=== PATIENT | female | born 1940 | race Caucasian/White ===

== ENCOUNTER 2018-05-13 08:06 | Inpatient (IN) | payer OTHER, BC ==
[~2018-05-13] VITALS: Ht 170.2 cm; Wt 58.9 kg
[2018-05-13 09:29] LABS: HEMATOCRIT 31.5 % (36.0-46.0); HEMOGLOBIN 10.9 G/DL (11.9-15.5); MCH 31.3 PG (29.0-34.0); MCHC 34.6 G/DL (30.0-36.0); MCV 90.5 FL (83-99); PLATELET COUNT 337 K/uL (156-360); RBC DIS.WIDTH-CV 13.5 % (11.8-14.6); RBC DIS.WIDTH-SD 44.1 % (39-53); RED BLOOD COUNT 3.48 M/uL (3.80-5.20); WHITE BLOOD COUNT 11.3 K/uL (4.1-10.2)
[2018-05-13 09:33] LABS: INTER. NORMALIZED RATIO 1.2
[2018-05-13 09:35] LABS: PTT 23.5 SEC (25-37)
[2018-05-13 09:48] LABS: ALBUMIN 3.1 g/dL (3.2-4.8); CHLORIDE 102 mEq/L (99-109); POTASSIUM 3.8 mEq/L (3.7-5.4); SODIUM 140 mEq/L (136-147)
[2018-05-13 09:51] LABS: GLUCOSE 296 mg/dL (70-99); TOTAL PROTEIN 6.3 g/dL (6.4-8.3)
[2018-05-13 09:53] LABS: TOTAL BILIRUBIN 0.8 mg/dL (0.0-1.0)
[2018-05-13 09:54] LABS: ALKALINE PHOSPHATASE 85 IU/L (3-129); CREATININE 0.7 mg/dL (0.6-1.3); GFR ESTIMATE (CALCULATED) > 59 mL/min/
[2018-05-13 09:56] LABS: AST (GOT) 16 IU/L (2-34); UREA NITROGEN (BUN) 17 mg/dL (9-23)
[2018-05-13 09:57] LABS: ALT (GPT) 10 IU/L (3-49)
[2018-05-13 10:00] LABS: TROP-I INTERPRETATION NEGATIVE; TROPONIN-I 0.02 ng/mL (0.0-0.30)
[2018-05-13] MEDS ORDERED: MEMANTINE HCL5 MG PO (11:14)
[2018-05-13] MEDS ORDERED: ASPIR-LOW81 MG PO (11:14)
[2018-05-13] MEDS ORDERED: CITALOPRAM HBR20 MG PO (11:15)
[2018-05-13] MEDS ORDERED: LISINOPRIL10 MG PO (11:15)
[2018-05-13] MEDS ORDERED: MIRTAZAPINE15 MG PO (11:15)
[2018-05-13] MEDS ORDERED: METFORMIN HCL500 M1 PO (11:15)
[2018-05-13] MEDS ORDERED: MULTI VITAMIN1 EACH PO (11:16)
[2018-05-13] MEDS ORDERED: SYNTHROID100 MCG PO (11:16)
[2018-05-13 13:51] LABS: CREATINE KINASE 104 IU/L (1-294)
[2018-05-13 18:00] VITALS: BP 120/59
[2018-05-13 19:27] VITALS: BP 148/70; BP 198/86
[2018-05-13 23:11] VITALS: BP 152/73
[2018-05-14 05:07] VITALS: BP 120/63
[2018-05-14 08:03] LABS: HEMATOCRIT 25.8 % (36.0-46.0); HEMOGLOBIN 8.6 G/DL (11.9-15.5); MCH 30.8 PG (29.0-34.0); MCHC 33.3 G/DL (30.0-36.0); MCV 92.5 FL (83-99); PLATELET COUNT 295 K/uL (156-360); RBC DIS.WIDTH-CV 13.5 % (11.8-14.6); RBC DIS.WIDTH-SD 45.4 % (39-53); RED BLOOD COUNT 2.79 M/uL (3.80-5.20); WHITE BLOOD COUNT 9.2 K/uL (4.1-10.2)
[2018-05-14 08:27] LABS: CHLORIDE 107 MEQ/L (99-109); CREATININE 0.4 MG/DL (0.6-1.3); GFR ESTIMATE (CALCULATED) > 59 mL/min/; POTASSIUM 3.7 MEQ/L (3.7-5.4); SODIUM 142 MEQ/L (136-147); UREA NITROGEN (BUN) 17 mg/dL (9-23)
[2018-05-14 08:32] LABS: GLUCOSE 59 mg/dL (70-99)
[2018-05-14 08:52] VITALS: BP 121/55
[2018-05-14 09:22] LABS: IRON 25 MCG/DL (35-150); TRANSFERRIN (TIBC) 140.4 mg/dL (215-380); TRANSFERRIN SATUR. 18 % (20-55)
[2018-05-14 10:00] LABS: FERRITIN 439 NG/ML (10-291)
[2018-05-14 10:07] LABS: FOLIC ACID (FOLATE) 12.8 NG/ML (5.0-22.0)
[2018-05-14 11:53] VITALS: BP 117/57
[2018-05-14 16:09] VITALS: BP 121/58
[2018-05-14 19:07] LABS: HEMATOCRIT 24.9 % (36.0-46.0); MCH 29.4 PG (29.0-34.0); MCHC 32.1 G/DL (30.0-36.0); MCV 91.5 FL (83-99); PLATELET COUNT 312 K/uL (156-360); RBC DIS.WIDTH-CV 13.7 % (11.8-14.6); RBC DIS.WIDTH-SD 45.1 % (39-53); RED BLOOD COUNT 2.72 M/uL (3.80-5.20)
[2018-05-14 19:35] VITALS: BP 111/53
[2018-05-14 23:50] VITALS: BP 117/58
[2018-05-15] VITALS (11 sets, daily range): BP systolic 113–175; BP diastolic 60–84
[2018-05-15 07:01] LABS: BASOPHIL (%) 0.4 % (0-1); EOSINOPHIL (%) 2.5 % (0-5); EOSINOPHIL COUNT 0.2 K/uL (0-0.3); HEMATOCRIT 22.1 % (36.0-46.0); HEMOGLOBIN 7.3 G/DL (11.9-15.5); IMMATURE GRANULOCYTE (%) 0.3 % (0.0-0.7); MCH 30.3 PG (29.0-34.0); MCV 91.7 FL (83-99); MONOCYTE (%) 8.8 % (3-12); MONOCYTE COUNT 0.7 K/uL (0-0.8); NEUTROPHIL COUNT 4.9 K/uL (1.8-6.4); PLATELET COUNT 291 K/uL (156-360); RBC DIS.WIDTH-CV 13.6 % (11.8-14.6); RBC DIS.WIDTH-SD 45.9 % (39-53); RED BLOOD COUNT 2.41 M/uL (3.80-5.20); WHITE BLOOD COUNT 7.9 K/uL (4.1-10.2)
[2018-05-15 07:36] LABS: CHLORIDE 104 MEQ/L (99-109); CREATININE 0.4 MG/DL (0.6-1.3); GFR ESTIMATE (CALCULATED) > 59 mL/min/; POTASSIUM 3.7 MEQ/L (3.7-5.4); SODIUM 138 MEQ/L (136-147); UREA NITROGEN (BUN) 17 mg/dL (9-23)
[2018-05-15 07:38] LABS: GLUCOSE 155 mg/dL (70-99)
[2018-05-15 21:39] LABS: HEMATOCRIT 26.5 % (36.0-46.0); HEMOGLOBIN 8.8 G/DL (11.9-15.5); MCH 29.9 PG (29.0-34.0); MCHC 33.2 G/DL (30.0-36.0); MCV 90.1 FL (83-99); PLATELET COUNT 284 K/uL (156-360); RBC DIS.WIDTH-CV 13.4 % (11.8-14.6); WHITE BLOOD COUNT 8.2 K/uL (4.1-10.2)
[2018-05-15 21:55] LABS: RED BLOOD COUNT 2.94 M/uL (3.80-5.20)
[2018-05-16] VITALS (7 sets, daily range): BP systolic 116–180; BP diastolic 57–87
[2018-05-16 07:29] LABS: BASOPHIL (%) 0.6 % (0-1); BASOPHIL COUNT 0.1 K/uL (0-0.1); EOSINOPHIL (%) 2.5 % (0-5); EOSINOPHIL COUNT 0.2 K/uL (0-0.3); HEMATOCRIT 26.7 % (36.0-46.0); IMMATURE GRANULOCYTE (%) 0.9 % (0.0-0.7); LYMPHOCYTE (%) 20.6 % (15-42); LYMPHOCYTE COUNT 1.7 K/uL (1.0-2.8); MCH 30.1 PG (29.0-34.0); MCHC 33.7 G/DL (30.0-36.0); MCV 89.3 FL (83-99); MONOCYTE (%) 11.5 % (3-12); NEUTROPHIL (%) 63.9 % (45-76); NEUTROPHIL COUNT 5.4 K/uL (1.8-6.4); PLATELET COUNT 313 K/uL (156-360); RBC DIS.WIDTH-CV 13.8 % (11.8-14.6); RBC DIS.WIDTH-SD 44.5 % (39-53); RED BLOOD COUNT 2.99 M/uL (3.80-5.20); WHITE BLOOD COUNT 8.4 K/uL (4.1-10.2)
[2018-05-16 08:03] LABS: CHLORIDE 102 MEQ/L (99-109); CREATININE 0.3 MG/DL (0.6-1.3); GFR ESTIMATE (CALCULATED) > 59 mL/min/; GLUCOSE 159 mg/dL (70-99); POTASSIUM 4.1 MEQ/L (3.7-5.4); SODIUM 138 MEQ/L (136-147); UREA NITROGEN (BUN) 14 mg/dL (9-23)
[2018-05-17 03:23] VITALS: BP 144/68
[2018-05-17 07:47] LABS: HEMATOCRIT 26.3 % (36.0-46.0); HEMOGLOBIN 8.9 G/DL (11.9-15.5); MCH 30.6 PG (29.0-34.0); MCHC 33.8 G/DL (30.0-36.0); MCV 90.4 FL (83-99); PLATELET COUNT 331 K/uL (156-360); RBC DIS.WIDTH-CV 13.8 % (11.8-14.6); RED BLOOD COUNT 2.91 M/uL (3.80-5.20); WHITE BLOOD COUNT 9.1 K/uL (4.1-10.2)
[2018-05-17 08:00] VITALS: BP 176/94
[2018-05-17 10:48] VITALS: BP 156/68
[2018-05-17 12:21] VITALS: BP 135/68
[2018-05-17 16:00] VITALS: BP 147/77
[2018-05-17 21:08] VITALS: BP 132/60
[2018-05-18 00:58] VITALS: BP 172/80
[2018-05-18 04:41] VITALS: BP 134/63
[2018-05-18 04:44] VITALS: BP 168/75
[2018-05-18 06:40] LABS: HEMATOCRIT 27.3 % (36.0-46.0); HEMOGLOBIN 9.2 G/DL (11.9-15.5); MCH 30.4 PG (29.0-34.0); MCHC 33.7 G/DL (30.0-36.0); MCV 90.1 FL (83-99); PLATELET COUNT 388 K/uL (156-360); RBC DIS.WIDTH-CV 13.6 % (11.8-14.6); RBC DIS.WIDTH-SD 43.8 % (39-53); RED BLOOD COUNT 3.03 M/uL (3.80-5.20); WHITE BLOOD COUNT 9.9 K/uL (4.1-10.2)
[2018-05-18 07:04] LABS: CHLORIDE 98 MEQ/L (99-109); CREATININE 0.3 MG/DL (0.6-1.3); GFR ESTIMATE (CALCULATED) > 59 mL/min/; GLUCOSE 174 mg/dL (70-99); POTASSIUM 4.6 MEQ/L (3.7-5.4); SODIUM 135 MEQ/L (136-147); UREA NITROGEN (BUN) 10 mg/dL (9-23)
[2018-05-18 08:58] VITALS: BP 176/77
[2018-05-18] MEDS ORDERED: LOVENOX40 MG/0.4 SC (11:36)
[2018-05-18] MEDS ORDERED: ENDOCET 5-3251 EACH PO (11:36)
[2018-05-18] MEDS ORDERED: COLACE100 MG PO (11:36)
[2018-05-18] MEDS ORDERED: MIRALAX17 GM PO (11:37)
== END 2018-05-18 13:37 | DRG 481 ==
LOC: EME 08:06 → 3EAST 11:23 → EDOF 11:23 → ENRESERV 11:27 → 3EAST 17:56
PROVIDERS: Emergency Medicine; Family Medicine; Internal Medicine; Physician Assistant
PROC: 0QS606Z Reposition Right Upper Femur with Intramedullary Internal Fixation Device, Open Approach (ICD-10-PCS; principal; 2018-05-13)
PROC: 30233N1 Transfusion of Nonautologous Red Blood Cells into Peripheral Vein, Percutaneous Approach (ICD-10-PCS; 2018-05-15)
DX: S72.141A Displaced intertrochanteric fracture of right femur, initial encounter for closed fracture (principal); W18.30XA Fall on same level, unspecified, initial encounter; L76.32 Postprocedural hematoma of skin and subcutaneous tissue following other procedure; Y83.8 Other surgical procedures as the cause of abnormal reaction of the patient, or of later complication, without mention of misadventure at the time of the procedure; D62 Acute posthemorrhagic anemia; J98.11 Atelectasis; R09.02 Hypoxemia; I10 Essential (primary) hypertension; K59.00 Constipation, unspecified; F03.90 Unspecified dementia, unspecified severity, without behavioral disturbance, psychotic disturbance, mood disturbance, and anxiety; E11.65 Type 2 diabetes mellitus with hyperglycemia; E89.0 Postprocedural hypothyroidism; F32.9 Major depressive disorder, single episode, unspecified; F41.9 Anxiety disorder, unspecified; M19.90 Unspecified osteoarthritis, unspecified site; Z87.891 Personal history of nicotine dependence
CPT/HCPCS: 71045; 73502; 73522; 74176; 74177; 76000; 80048; 80053; 81003; 82272; 82306; 82550; 82550 91; 82607; 82728; 82746; 82948; 83540; 84466; 84484; 85025; 85027; 85610; 85730; 86850; 86900; 86901; 86920; 93005; 94640; 94799; 97530 GO; 97530 GP; 99281; 99285; C1713; J0131; J0360; J0690; J1100; J1650; J1815; J1885; J1940; J2405; J3010; J7030; P9016

== ENCOUNTER 2018-05-20 12:13 | Inpatient (IN) | payer OTHER, BC ==
[~2018-05-20] VITALS: Ht 170.2 cm; Wt 57.9 kg
[~2018-05-20 12:13] MED LIST: ASPIR-LOW81 MG PO; CITALOPRAM HBR20 MG PO; COLACE100 MG PO; ENDOCET 5-3251 EACH PO; LISINOPRIL10 MG PO; LOVENOX40 MG/0.4 SC; MEMANTINE HCL5 MG PO; METFORMIN HCL500 M1 PO; MIRALAX17 GM PO; MIRTAZAPINE15 MG PO; MULTI VITAMIN1 EACH PO; SYNTHROID100 MCG PO
[2018-05-20 13:15] LABS: BASOPHIL (%) 0.5 % (0-1); BASOPHIL COUNT 0.1 K/uL (0-0.1); EOSINOPHIL (%) 2.4 % (0-5); EOSINOPHIL COUNT 0.2 K/uL (0-0.3); HEMATOCRIT 29.2 % (36.0-46.0); HEMOGLOBIN 9.7 G/DL (11.9-15.5); IMMATURE GRANULOCYTE (%) 0.7 % (0.0-0.7); LYMPHOCYTE (%) 15.5 % (15-42); LYMPHOCYTE COUNT 1.4 K/uL (1.0-2.8); MCH 30.7 PG (29.0-34.0); MCHC 33.2 G/DL (30.0-36.0); MCV 92.4 FL (83-99); MONOCYTE COUNT 1.1 K/uL (0-0.8); NEUTROPHIL (%) 68.9 % (45-76); NEUTROPHIL COUNT 6.3 K/uL (1.8-6.4); PLATELET COUNT 505 K/uL (156-360); RBC DIS.WIDTH-CV 14.1 % (11.8-14.6); RBC DIS.WIDTH-SD 46.3 % (39-53); RED BLOOD COUNT 3.16 M/uL (3.80-5.20); WHITE BLOOD COUNT 9.1 K/uL (4.1-10.2)
[2018-05-20 13:25] LABS: ALBUMIN 2.7 g/dL (3.2-4.8); CHLORIDE 100 mEq/L (99-109); POTASSIUM 4.6 mEq/L (3.7-5.4); SODIUM 136 mEq/L (136-147)
[2018-05-20 13:27] LABS: GLUCOSE 252 mg/dL (70-99); TOTAL PROTEIN 5.7 g/dL (6.4-8.3)
[2018-05-20 13:29] LABS: TOTAL BILIRUBIN 0.6 mg/dL (0.0-1.0)
[2018-05-20 13:31] LABS: ALKALINE PHOSPHATASE 116 IU/L (3-129); CREATININE 0.6 mg/dL (0.6-1.3); GFR ESTIMATE (CALCULATED) > 59 mL/min/
[2018-05-20 13:32] LABS: UREA NITROGEN (BUN) 10 mg/dL (9-23)
[2018-05-20 13:33] LABS: AST (GOT) 13 IU/L (2-34)
[2018-05-20 13:34] LABS: ALT (GPT) 9 IU/L (3-49)
[2018-05-20 13:36] LABS: TROP-I INTERPRETATION NEGATIVE; TROPONIN-I < 0.01 ng/mL (0.0-0.30)
[2018-05-20 14:27] LABS: APPEARANCE SL.HAZY ((CLEAR)); BILIRUBIN NEGATIVE; BLOOD NEGATIVE; COLOR YELLOW ((YELLOW)); GLUCOSE (STRIP) 150; KETONES NEGATIVE; LEUKOCYTES NEGATIVE; NITRITE NEGATIVE; PROTEIN (STRIP) NEGATIVE; SPECIFIC GRAVITY 1.014 (1.000-1.030); UROBILINOGEN 0.2 MG/DL (0.2-1.0)
[2018-05-20 14:28] LABS: HDL CHOLESTEROL 42 MG/DL (Desirable>=50); LDL CHOLESTEROL 102 mg/dL (Desirable<100); NON-HDL CHOLESTEROL 129 mg/dL (Desirable<160); TOTAL CHOLESTEROL 171 mg/dL (Desirable<200); TRIGLYCERIDES 134 MG/DL (Normal: <150)
[2018-05-20 14:35] LABS: BACTERIA RARE /HPF; EPITHELIAL CELLS RARE /HPF; MUCUS NONE SEEN /LPF; RED BLOOD CELLS 0-5 /HPF (0-5); UCUL ADDED? NO; WHITE BLOOD CELLS 0-5 /HPF (0-5)
[2018-05-20] MEDS ORDERED: LOVENOX40 MG/0.4 SC (15:26)
[2018-05-20] MEDS ORDERED: SYNTHROID150 MCG PO (15:31)
[2018-05-20] MEDS ORDERED: COLACE100 MG PO (15:34)
[2018-05-20] MEDS ORDERED: DULCOLAX10 MG PR (15:37)
[2018-05-20] MEDS ORDERED: ENDOCET 5-3251 EACH PO (15:38)
[2018-05-20] MEDS ORDERED: MILK OF MAGN PO (15:40)
[2018-05-20] MEDS ORDERED: MIRALAX17 GM PO (15:41)
[2018-05-20 16:20] LABS: HEMATOCRIT 27.7 % (36.0-46.0); HEMOGLOBIN 9.4 G/DL (11.9-15.5); MCH 31.1 PG (29.0-34.0); MCHC 33.9 G/DL (30.0-36.0); MCV 91.7 FL (83-99); PLATELET COUNT 469 K/uL (156-360); RBC DIS.WIDTH-CV 14.1 % (11.8-14.6); RBC DIS.WIDTH-SD 44.9 % (39-53); RED BLOOD COUNT 3.02 M/uL (3.80-5.20); WHITE BLOOD COUNT 8.1 K/uL (4.1-10.2)
[2018-05-20 17:28] VITALS: BP 171/79
[2018-05-20 19:00] VITALS: BP 143/83
[2018-05-20 19:53] LABS: TROP-I INTERPRETATION NEGATIVE; TROPONIN-I < 0.01 ng/mL (0.0-0.30)
[2018-05-21 00:27] VITALS: BP 136/78
[2018-05-21 05:10] VITALS: BP 150/80
[2018-05-21 08:00] VITALS: BP 148/81
[2018-05-21 11:28] LABS: HEMATOCRIT 27.8 % (36.0-46.0); HEMOGLOBIN 9.3 G/DL (11.9-15.5); MCH 30.8 PG (29.0-34.0); MCHC 33.5 G/DL (30.0-36.0); MCV 92.1 FL (83-99); RBC DIS.WIDTH-CV 14.2 % (11.8-14.6); RBC DIS.WIDTH-SD 46.2 % (39-53); RED BLOOD COUNT 3.02 M/uL (3.80-5.20); WHITE BLOOD COUNT 7.7 K/uL (4.1-10.2)
[2018-05-21 11:29] LABS: PLATELET COUNT 635 K/uL (156-360)
[2018-05-21 11:44] LABS: CHLORIDE 101 mEq/L (99-109); POTASSIUM 4.3 mEq/L (3.7-5.4); SODIUM 133 mEq/L (136-147)
[2018-05-21 11:45] LABS: GLUCOSE 296 mg/dL (70-99)
[2018-05-21 11:49] LABS: CREATININE 0.6 mg/dL (0.6-1.3); GFR ESTIMATE (CALCULATED) > 59 mL/min/
[2018-05-21 11:50] LABS: UREA NITROGEN (BUN) 11 mg/dL (9-23)
[2018-05-21 11:57] VITALS: BP 162/79
[2018-05-21 16:07] VITALS: BP 170/80
[2018-05-21 17:51] LABS: THYROTROPIN (TSH) 14.7 MIU/L (0.4-5.5)
[2018-05-21 19:03] VITALS: BP 137/65
[2018-05-22 00:37] VITALS: BP 170/82
[2018-05-22 05:09] VITALS: BP 171/71
[2018-05-22 05:34] LABS: HEMATOCRIT 29.9 % (36.0-46.0); HEMOGLOBIN 9.8 G/DL (11.9-15.5); MCH 30.6 PG (29.0-34.0); MCHC 32.8 G/DL (30.0-36.0); MCV 93.4 FL (83-99); PLATELET COUNT 600 K/uL (156-360); RBC DIS.WIDTH-CV 14.3 % (11.8-14.6); WHITE BLOOD COUNT 9.5 K/uL (4.1-10.2)
[2018-05-22 06:02] LABS: CHLORIDE 99 MEQ/L (99-109); CREATININE 0.4 MG/DL (0.6-1.3); GFR ESTIMATE (CALCULATED) > 59 mL/min/; GLUCOSE 177 mg/dL (70-99); MAGNESIUM 1.4 mg/dl (1.3-2.7); POTASSIUM 4.4 MEQ/L (3.7-5.4); SODIUM 134 MEQ/L (136-147); UREA NITROGEN (BUN) 12 mg/dL (9-23)
[2018-05-22 07:37] VITALS: BP 148/62
[2018-05-22 11:22] VITALS: BP 132/65
[2018-05-22 12:08] LABS: HEMOGLOBIN A1c (GLYCOHEMOGLOB) 7.3 % (Below 5.7)
[2018-05-22 14:18] LABS: IMM.RETIC FRACTION 30.5 % (3-19); RETIC HGB EQUIVALENT 31.8 (28-36); RETICULOCYTE COUNT 5.8 % (0.5-1.8)
[2018-05-22 14:28] LABS: LACTATE DEHYDROGENASE 257 IU/L (20-246)
[2018-05-22 14:37] LABS: C-REACTIVE PROTEIN 41.7 MG/L (0-10); TRANSFERRIN (TIBC) 194.1 mg/dL (215-380)
[2018-05-22 15:41] VITALS: BP 117/58
[2018-05-22 20:00] VITALS: BP 147/80
[2018-05-23] VITALS: BP 136/68
[2018-05-23 04:00] VITALS: BP 140/72
[2018-05-23 08:00] VITALS: BP 134/73
[2018-05-23] MEDS ORDERED: LISINOPRIL20 MG PO (11:06)
[2018-05-23] MEDS ORDERED: TYLENOL REGULA325 MG PO (11:08)
[2018-05-23] MEDS ORDERED: IBUPROFEN400 MG PO (11:08)
[2018-05-23] MEDS ORDERED: LEVOTHYROXINE100 MCG PO (11:09)
== END 2018-05-23 13:29 | DRG 948 ==
LOC: EME 12:13 → EDOF 15:46 → ENRESERV 15:47 → 4SOUTH 17:14
PROVIDERS: Emergency Medicine; Internal Medicine
DX: R41.82 Altered mental status, unspecified (principal); T40.2X5A Adverse effect of other opioids, initial encounter; C78.01 Secondary malignant neoplasm of right lung; R47.81 Slurred speech; D64.9 Anemia, unspecified; D47.3 Essential (hemorrhagic) thrombocythemia; R63.4 Abnormal weight loss; Z68.1 Body mass index [BMI] 19.9 or less, adult; R25.1 Tremor, unspecified; E11.9 Type 2 diabetes mellitus without complications; E89.0 Postprocedural hypothyroidism; F03.90 Unspecified dementia, unspecified severity, without behavioral disturbance, psychotic disturbance, mood disturbance, and anxiety; I10 Essential (primary) hypertension; K80.20 Calculus of gallbladder without cholecystitis without obstruction; G47.00 Insomnia, unspecified; R00.0 Tachycardia, unspecified; Z85.850 Personal history of malignant neoplasm of thyroid; Z87.891 Personal history of nicotine dependence
CPT/HCPCS: 70450; 70551; 71045; 71046; 71250; 80048; 80053; 80061; 81003; 82728; 82948; 83036; 83615; 83735; 84439; 84443; 84466; 84484; 85025; 85027; 85046; 85651; 86140; 93005; 93880; 94799; 97530 GP; 99281; 99284; G0378; G8978 GP CM; G8979 GP CM; J1650; J1815; J2310; J7040

== ENCOUNTER → 2018-06-26 | Outpatient (CLI) | payer OTHER, MEDICARE ==
[~2018-06-26] MED LIST changes: +DULCOLAX10 MG PR; +IBUPROFEN400 MG PO; +LEVOTHYROXINE100 MCG PO; +LISINOPRIL20 MG PO; +MILK OF MAGN PO; +SYNTHROID150 MCG PO; +TYLENOL REGULA325 MG PO
== END | disposition home or self-care (01) ==
LOC: OPR 07:40 → EDSTATUS 08:00
PROVIDERS: Internal Medicine
PROC: 0BBC3ZX Excision of Right Upper Lung Lobe, Percutaneous Approach, Diagnostic (ICD-10-PCS; principal; 2018-06-26)
DX: C7A.090 Malignant carcinoid tumor of the bronchus and lung (principal); E11.9 Type 2 diabetes mellitus without complications; I10 Essential (primary) hypertension; E03.9 Hypothyroidism, unspecified
CPT/HCPCS: 71045; 77012; 82948; 88305; 88341 TC; 88342 TC; J3010